=== PATIENT | male | born 1975 | race Caucasian/White ===

== ENCOUNTER → 2017-05-31 15:58 | Outpatient (CLI) | payer OTHER, SELFPAY | PROVIDERS: Visit Provider Physician Assistant | DX: J02.9 Acute pharyngitis, unspecified (principal) | CPT/HCPCS: 87081 ==

== ENCOUNTER → 2018-01-28 08:06 | Outpatient (CLI) | payer OTHER, SELFPAY ==
[2018-01-28 12:24] LABS: Cholesterol 239 mg/dL (200); Glucose 88 mg/dL (74-106); High Density Lipoprotein 45 mg/dL; Triglycerides 135 mg/dL; Very Low Density Lipoprotein 27 mg/dL (5-40)
== END ==
PROVIDERS: Visit Provider Family Medicine
DX: Z13.1 Encounter for screening for diabetes mellitus (principal); Z13.220 Encounter for screening for lipoid disorders
CPT/HCPCS: 36415; 80061; 82947

== ENCOUNTER 2020-02-02 13:48 | Emergency (ER) | payer OTHER, SELFPAY ==
[2019-05-18 07:55] VITALS: BMI 28.0
[2020-02-02 13:48] VITALS: BP 122/69; PULSE 82; RESP 17; TEMP 36.2; O2SAT 98; BMI 27.6
[2020-02-02 13:50] VITALS: BP 122/69; PULSE 82; RESP 17; TEMP 36.2; O2SAT 98
--- NOTE | 2020-02-02 15:42 | VDLE_ITS ---
Reason For Study: swelling Procedure LEFT This is a venous duplex using B-mode, color GSV is normal. flow and spectral Doppler. CFV is compressible, spontaneous, phasic, Exam performed portable in ED. competent, and demonstrates normal The exam was abbreviated due to the COVID 19 augmentation. protocol. FV is compressible, spontaneous, phasic, The exam was diagnostic. competent and demonstrates normal A preliminary report was called and/or faxed augmentation. to ED staff. POP V is compressible, spontaneous, phasic, competent and demonstrates normal augmentation. T/P Trunk is compressible. PTV is compressible. LT PerV is compressible. Interpretation Summary There is no evidence of left lower extremity deep vein thrombosis. Left great saphenous vein appears patent and compressible segmentally. COVID-19 protocol utilized Ordering Physician: Chirag Rinaldi Performed By: Seb Mills RVT
--- NOTE | 2020-02-02 16:10 | ED.VISSUMM ---
- ER Visit Summary Date of Service: 02/02/20 Chief Complaint: [Numbness and tingling to the left foot] History of Present Illness: The patient is a 44 M presents to the emergency department with numbness and tingling in the left foot that he has had for about 4 days. Patient describes a localized area at plantar aspect of the first MTP joint that just feels numb. Patient also noticed that over last couple days has had some discomfort in his left hamstrings and feels like his left calf is sore and more swollen than his right today. He denies any trauma to his leg. He denies recent travel or surgery. He has no history of PE or DVT. He denies any chest pain or shortness of breath. Patient denies any back pain or radiculopathic type symptoms. [] Physical Examination: [HEENT-PERRLA, EOMI. Cranial nerves II through XII grossly intact. TMs clear. Mucous membranes moist. No adenopathy. Cardiovascular-regular rate and rhythm without murmur or ectopy Lungs-clear to auscultation, chest wall stable without crepitus or subcu emphysema Abdomen-normoactive bowel sounds, soft, nontender, no rebound or rigidity, no peritoneal signs. Back exam-patient has no tenderness over the lumbar spine. Negative straight leg raises. Extremities-intact ?4, normal range of motion, normal pulses, atraumatic. Left foot-patient has normal dorsal pedal and posterior tibial pulses. Patient has normal sensation to the lateral aspect of the foot. No trauma noted to the plantar aspect of the foot where he has somewhat decreased sensation.] No erythema or edema noted of the left lower extremity. He does have a positive Homans' sign. Test Results: [Venous duplex of the left lower extremity obtained was negative for DVT.] Emergency Department Course and Treatment: [] Treatment Plan: [To follow-up with podiatry in 3 to 5 days.] Disposition: [Discharged home in stable condition] Impression: [Paresthesias left foot-etiology uncertain] This note was generated with [employer] software. It may contain incorrect words, spelling, and punctuation that were not noted in review of the chart prior to signing ED Disposition - Plan for ED Patient: Referrals: Lambert Molina MD [Primary Care Provider] -
--- NOTE | 2020-02-02 16:13 | ED.DEP ---
ED Disposition - Plan for ED Patient: Instructions: ED Peripheral Edema, Unilateral, ED Paraesthesias Referrals: Lambert Molina MD [Primary Care Provider] - Julio Solis DPM [STAFF PHYSICIAN] - 3-5 Days
== END 2020-02-02 16:45 | disposition home or self-care (01) ==
LOC: ED 15:47
PROVIDERS: Emergency Provider Emergency Medicine; PCP Family Medicine
DX: R20.2 Paresthesia of skin (principal); M79.662 Pain in left lower leg
CPT/HCPCS: 93971; 99282